=== PATIENT | female | born 1945 | race Caucasian/White ===

== ENCOUNTER 2020-12-28 07:48 | Outpatient (CLI) | payer MEDICARE, OTHER | END 2020-12-28 23:59 | disposition home or self-care (01) | LOC: CVU 07:48 → RAD 23:59 | PROVIDERS: ATTEND Internal Medicine Cardiovascular Disease | DX: I08.0 Rheumatic disorders of both mitral and aortic valves (principal); I65.23 Occlusion and stenosis of bilateral carotid arteries; N26.1 Atrophy of kidney (terminal); N18.30 Chronic kidney disease, stage 3 unspecified; R09.89 Other specified symptoms and signs involving the circulatory and respiratory systems | CPT/HCPCS: 76770; 93306; 93880 ==

== ENCOUNTER 2021-05-18 13:54 | Outpatient (CLI) | payer MEDICARE, OTHER | END 2021-05-18 23:59 | disposition home or self-care (01) | LOC: RAD 13:54 | PROVIDERS: ATTEND Internal Medicine | DX: R89.1 Abnormal level of hormones in specimens from other organs, systems and tissues (principal) | CPT/HCPCS: 71046 ==

== ENCOUNTER 2021-05-31 11:33 | Day surgery (SDC) | payer MEDICARE, OTHER ==
[2021-05-31] MEDS ORDERED: LIDOCAINE 2%, 20ML ONE (11:41)
== END 2021-05-31 12:50 | disposition home or self-care (01) ==
LOC: CACL 11:33
PROVIDERS: ATTEND Internal Medicine Cardiovascular Disease
DX: I63.9 Cerebral infarction, unspecified (principal); I10 Essential (primary) hypertension; E78.5 Hyperlipidemia, unspecified; E03.9 Hypothyroidism, unspecified; M19.90 Unspecified osteoarthritis, unspecified site; Z79.899 Other long term (current) drug therapy; Z88.0 Allergy status to penicillin; Z88.2 Allergy status to sulfonamides; Z88.8 Allergy status to other drugs, medicaments and biological substances; Z91.040 Latex allergy status
CPT/HCPCS: 33285; C1764